=== PATIENT | female | born 1955 | race Caucasian/White ===

== ENCOUNTER → 2016-11-14 | Outpatient (CLI) | payer OTHER ==
[~2016-11-14] MED LIST: METO5TAB11 PO; OMEP40CA6 PO; OXYB5SYR2 PO; ranitidine
--- NOTE | 2016-11-14 16:55 | RADRPT ---
PROCEDURE: Nuclear medicine gastric emptying study CLINICAL INDICATION: Abdominal pain. Nausea. Rule out gastroparesis. TECHNIQUE: Nuclear medicine gastric emptying study was performed following the uncomplicated inges tion of 1.1 mCi of technetium 99m sulfur colloid. Planar imaging of the abdomen and stomach was per formed. Time activity curves were plotted on a graph. Images were reviewed on a high-resolution ID [employer] workstation. COMPARISON: None available FINDINGS: There is normal gastric emptying from the stomach. The T1/2 is approximately 242 minutes, markedly abnormal and elevated. The normal range is <90 minutes. There is inappropriate emptying from the s tomach to the small bowel. Findings are consistent with gastroparesis, or less likely gastric outle t obstruction. IMPRESSION: 1. Positive gastric emptying study. 2. Abnormal lack of passage of radiotracer from the stomach. 3. Findings are consistent with gastroparesis. RPTAT: PP .Rishabh Bernabe MD, MD Date Time Electronically viewed and signed by .Rishabh Bernabe MD, on 11/14/2016 16:55 .B/
== END | disposition home or self-care (01) ==
LOC: NUC 13:36
PROVIDERS: ATTEND Surgery Surgical Oncology
DX: K31.84 Gastroparesis (principal)
CPT/HCPCS: 78264; A9541

== ENCOUNTER 2017-01-08 05:21 | Inpatient (IN) | payer OTHER ==
[2017-01-05 11:41] VITALS: BMI 20.2
[2017-01-08] VITALS (14 sets, daily range): BP systolic 99–146; BP diastolic 45–78; PULSE 50–64; RESP 6–35; Ht 160 cm; Wt 50.3 kg
[~2017-01-08] VITALS: Ht 160 cm; Wt 50.3 kg
[~2017-01-08 05:21] MED LIST changes: -METO5TAB11 PO; +RANI150C11 PO; +SOD CHLORIDE 0.9% 1,000 ML IV SCH; -ranitidine
[2017-01-08] MEDS ORDERED: CEFAZOLIN 2 GM/50 ML (PMX) 50 ML IVPB SCH (06:00)
[2017-01-08] MEDS ORDERED: BUPIVACAINE 0.25% (MPF) 30 ML INJ ONE (06:48)
[2017-01-08] MEDS ORDERED: ROCURONIUM 50 MG INJ ONE (07:24)
[2017-01-08] MEDS ORDERED: LIDOCAINE 2% (SDV) 5 ML INJ ONE (07:24)
[2017-01-08] MEDS ORDERED: PROPOFOL 20 ML ONE (07:24)
[2017-01-08] MEDS ORDERED: BUPIVACAINE 0.25% (MPF) 30 ML INJ INJ ONE (07:35)
[2017-01-08] MEDS ORDERED: METOCLOPRAMIDE 10 MG INJ IV PRN (09:00)
[2017-01-08] MEDS ORDERED: FENTAnyl 50 MCG/ML VIAL IV PRN ×3 (09:00)
[2017-01-08] MEDS ORDERED: hydrALAzine 20 MG INJ IV PRN (09:00)
[2017-01-08] MEDS ORDERED: MEPERIDINE 25 MG INJ IV PRN (09:00)
[2017-01-08] MEDS ORDERED: DIPHENHYDRAMINE 50 MG INJ IV PRN (09:00)
[2017-01-08] MEDS ORDERED: ONDANSETRON 4 MG INJ IV PRN ×2 (09:00→22:00)
[2017-01-08] MEDS ORDERED: HYDROmorphONE (0.2 MG/ML) 10ML SYG IV PRN ×3 (09:00)
[2017-01-08] MEDS ORDERED: LABETALOL HCL 20MG INJ IV PRN (09:00)
[2017-01-08] MEDS ORDERED: EPHEDrine SULFATE 50 MG/5 ML SYG IV PRN (09:00)
[2017-01-08] MEDS ORDERED: AMPICILLIN/SULB 3 GM/NS (PMX) 100 ML IVPB SCH (10:00)
[2017-01-08 10:25] LABS: ADD SCAN DIFF NO
[2017-01-08 10:28] LABS: BASOPHIL # 0.1 10^3/ul (0.0-0.1); BASOPHILS % 0.5 % (0.0-2.0); EOSINOPHILS # 0.4 10^3/ul (0.0-0.5); EOSINOPHILS % 4.1 % (0.0-7.0); HEMOGLOBIN 13.2 g/dl (12.0-16.0); LYMPHOCYTES # 2.4 10^3/ul (0.8-2.9); LYMPHOCYTES % 25.5 % (15.0-51.0); MEAN CORPUSCULAR HEMOGLOBIN 32.8 pg (29.0-33.0); MEAN CORPUSCULAR HGB CONC 33.8 g/dl (32.0-37.0); MEAN PLATELET VOLUME 10.7 fl (7.4-10.4); MONOCYTE # 0.6 10^3/ul (0.3-0.9); MONOCYTES % 6.2 % (0.0-11.0); NEUTROPHILS % 63.4 % (39.0-77.0); PLATELET COUNT 293 10^3/UL (140-415); RED BLOOD COUNT 4.02 10^6/ul (4.20-5.40); RED CELL DISTRIBUTION WIDTH 12.6 % (11.5-14.5); WHITE BLOOD COUNT 9.5 10^3/ul (4.8-10.8)
[2017-01-08 10:37] LABS: ALBUMIN 3.6 g/dl (3.3-4.9)
[2017-01-08 10:40] LABS: ALBUMIN/GLOBULIN RATIO 1.28; BILIRUBIN,INDIRECT 0.1 mg/dl (0-1.1); BILIRUBIN,TOTAL 0.1 mg/dl (0.2-1.3); TOTAL PROTEIN 6.4 g/dl (6.1-8.1)
[2017-01-08 10:42] LABS: CALCIUM 8.4 mg/dl (8.4-10.2); CREATININE 0.87 mg/dl (0.44-1.00); POTASSIUM 3.6 mmol/L (3.5-5.1)
[2017-01-08] MEDS: LACTATED RINGER'S 1,000 ML IV SCH ×2 (11:39→19:44)
[2017-01-08] MEDS: morphine 2 MG INJ IV PRN ×3 (11:48→21:13)
--- NOTE | 2017-01-08 12:18 | OPR ---
DATE OF OPERATION: 01/08/2017 INDICATION: This is a 61-year-old female with examination and evaluation of gastroparesis with evid ence of a gastric outlet obstruction. She has persistent nausea and vomiting and requests a gastroi ntestinal bypass. Risks, alternatives, benefits, and personnel were discussed with the patient. Ajith westbrook expressed understanding and consented to the operation. PREOPERATIVE DIAGNOSIS: Gastroparesis and gastric outlet obstruction. POSTOPERATIVE DIAGNOSIS: Gastroparesis and gastric outlet obstruction. OPERATION: Laparoscopic gastrointestinal bypass with Billroth II configuration. SURGEON: Amanda Heath MD SPECIMENS: None. COMPLICATIONS: None. ANESTHESIA: General. DESCRIPTION OF PROCEDURE: The patient was taken to the OR and prepped and draped in the usual steri le fashion. Surgical timeout was performed and IV antibiotics were given. Periumbilical left upper 12 mm optical trocar was placed with optical entry technique. Pneumoperitoneum was established. M idepigastric 5 mm optical trocar, left midclavicular subcostal 12 mm optical trocar, right subcostal midclavicular 12 mm optical trocar and left upper flank 5 mm optical trocar were placed under direc t visualization. A snake liver retractor was placed to retract the liver out of visualization. Upo n initial inspection, there appeared to be a distended stomach which was enlarged. This was suction ed out with OG tube. Attention was then directed to the short gastrics. The short gastrics were di vided with handheld Harmonic. The lesser space was then evaluated. It appeared that a retrogastric Billroth II anastomosis would be beneficial for the patient. The jejunum was identified from the l igament of Treitz and marched out approximately 45 cm from the ligament of Treitz. A stay suture wa s placed with 3-0 silk to the retrogastric region. Another stay suture was placed approximately 20 cm distal in a peristaltic configuration towards the pylorus of the stomach. Gastrotomy and enterotomy were made with the handheld Harmonic. Three fires of the [address] [place] stapl er were placed to perform the gastrojejunal anastomosis. The remaining gastrotomy/enterotomy was cl osed with a running 3-0 PDS. This gastrotomy/enterotomy was then closed with another layer of inter rupted 3-0 silks. There was good hemostasis. Ports were removed under direct visualization. Skin was closed using skin gonzalo. Local anesthesia was injected. Dry dressings were applied. Dictated By: AMANDA NGUYEN/CELIO Conf#: [id number] DID#: [id number]
[2017-01-08] MEDS: AMPICILLIN/SULB 3 GM/NS (PMX) 100 ML IVPB SCH ×3 (13:55→23:19)
--- NOTE | 2017-01-08 20:14 | HP ---
DATE OF ADMISSION: 01/08/2017 HISTORY OF PRESENT ILLNESS: The patient is 61-year-old female. The patient with history of GERD, B arrett esophagus, hiatal hernia. The patient was diagnosed with gastroparesis and duodenal strictur e with multiple visits to the emergency room for nausea and vomiting. The patient was evaluated in surgical consultation with Dr. Heath, and patient was brought to the hospital and underwent laparoscop ic gastrointestinal bypass with Billroth II configuration for gastroparesis with evidence of gastric outlet obstruction. Postoperatively, the patient experienced significant pain, and patient was adm itted for further evaluation and management. PAST MEDICAL HISTORY: Positive for GERD, gastric ulcer, hiatal hernia, Arguelles esophagus. The ella ent was followed by Dr. Ovalle in gastroenterology consultation and underwent EGD. 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 The patient also with a history of complete uterine prolap se. PAST SURGICAL HISTORY: The patient denies having any surgeries in the past. SOCIAL HISTORY: The patient denies any tobacco use in the past, denies any illicit drug use. The p atient drinks alcohol occasionally. FAMILY HISTORY: Positive for ovarian cancer and breast cancer in first-degree relative. ALLERGIES: THE PATIENT IS ALLERGIC TO CODEINE. HOME MEDICATIONS: Include: 1. Ranitidine. 2. Omeprazole. 3. Oxybutynin chloride. REVIEW OF SYSTEMS: A 12-point review of systems is negative unless what mentioned in HPI. PHYSICAL ASSESSMENT: GENERAL: Well-developed, well-nourished female, currently is awake, alert. VITAL SIGNS: Temperature 98.9, pulse is 63, blood pressure is 135/78, respiratory rate 18, oxygen s aturation is 100% on 2 L nasal cannula. HEENT: Head is atraumatic, normocephalic. Pupils equal, round, reactive to light and accommodation . Oral mucosa is pink, moist. NECK: Supple. No cervical lymphadenopathy, no thyromegaly. CHEST: Lungs clear bilaterally. There are no rhonchi, wheezes, rales noted. CARDIOVASCULAR: Normal S1, S2. No murmurs, gallops, clicks, rubs noted. ABDOMEN: Status post surgery with laparoscopic surgical incisions. Bowel sounds hypoactive. EXTREMITIES: There is no edema, clubbing, cyanosis. Pulses equal bilaterally 2+. SKIN: There is no rash, petechiae noted. NEUROLOGIC: The patient is awake, alert and oriented x4. No focal deficit noted. The patient move s all extremities. Stable gait. LABORATORY DATA ON ADMISSION: CBC: White blood cells 9.5, hemoglobin 13.2, hematocrit 39.0, platel ets 293. Chemistry: Sodium is 141, potassium 3.6, chloride 104, carbon dioxide 27, anion gap 14, B UN is 15, creatinine 0.87, glucose 141, calcium 8.4, AST 37, ALT 38, alkaline phosphatase is 78. ASSESSMENT AND PLAN: 1. Gastroparesis and gastric outlet obstruction, status post laparoscopic gastrointestinal bypass b y Dr. Heath on 01/08/2017. Continue to follow up surgical recommendations. The patient is currently n.p.o. Continue IV fluids. The patient is also receiving postoperative antibiotics and continue Pr otonix. 2. Gastroesophageal reflux disease. 3. Uterine prolapse. We are going to continue morphine p.r.n. for pain and Zofran p.r.n. for nause a. Monitor electrolytes. Incentive spirometer q.1 hour while the patient is awake. 4. Sequential compression devices for deep venous thrombosis prophylaxis. Further recommendations based on clinical course. Plan of care discussed with Dr. Yee. Dictated By: CYNTHIA MANZO ACCOUNT ASSISTANT for PRISCILA YEE MD SR/NTS Conf#: [id number] DID#: [id number]
[2017-01-09] MEDS: LACTATED RINGER'S 1,000 ML IV SCH ×3 (01:03→18:05)
[2017-01-09] MEDS: AMPICILLIN/SULB 3 GM/NS (PMX) 100 ML IVPB SCH (05:12)
[2017-01-09] MEDS: PANTOPRAZOLE 40 MG INJ IV SCH (05:13)
[2017-01-09 07:23] VITALS: BP 126/57; RESP 20
[2017-01-09] MEDS ORDERED: HYDROCODONE/APAP (5/325) TAB PO PRN (11:00)
[2017-01-09 11:28] LABS: ADD SCAN DIFF NO
[2017-01-09 11:33] LABS: BASOPHILS % 0.1 % (0.0-2.0); HEMOGLOBIN 12.9 g/dl (12.0-16.0); LYMPHOCYTES % 7.5 % (15.0-51.0); MEAN CORPUSCULAR HEMOGLOBIN 32.3 pg (29.0-33.0); MEAN CORPUSCULAR HGB CONC 33.1 g/dl (32.0-37.0); MEAN CORPUSCULAR VOLUME 97.7 fl (82.0-101.0); MEAN PLATELET VOLUME 10.9 fl (7.4-10.4); MONOCYTE # 0.9 10^3/ul (0.3-0.9); MONOCYTES % 6.7 % (0.0-11.0); NEUTROPHIL # 11.7 10^3/ul (1.6-7.5); NEUTROPHILS % 85.2 % (39.0-77.0); PLATELET COUNT 294 10^3/UL (140-415); RED BLOOD COUNT 3.99 10^6/ul (4.20-5.40); RED CELL DISTRIBUTION WIDTH 13.2 % (11.5-14.5); WHITE BLOOD COUNT 13.8 10^3/ul (4.8-10.8)
[2017-01-09 11:55] LABS: ALBUMIN 3.6 g/dl (3.3-4.9); ALBUMIN/GLOBULIN RATIO 1.24; BILIRUBIN,INDIRECT 0.1 mg/dl (0-1.1); BILIRUBIN,TOTAL 0.1 mg/dl (0.2-1.3); CALCIUM 8.9 mg/dl (8.4-10.2); CREATININE 0.65 mg/dl (0.44-1.00); POTASSIUM 3.7 mmol/L (3.5-5.1); TOTAL PROTEIN 6.5 g/dl (6.1-8.1)
[2017-01-09] MEDS: ASA/ACETAMINOPHEN/CAFF TAB PO PRN ×2 (11:55→18:16)
--- NOTE | 2017-01-09 17:57 | PN ---
Date/Time of Note Date/Time of Note DATE: 01/09/17 TIME: 17:53 Assessment/Plan VTE Prophylaxis VTE Prophylaxis Intervention: SCD's Lines/Catheters IV Catheter Type (from Nrs): Peripheral IV Urinary Cath still in place: No Assessment/Plan Chief Complaint/Hosp Course ASSESSMENT AND PLAN: 1. Gastroparesis and gastric outlet obstruction, status post laparoscopic gastrointestinal bypass by Dr. Heath on 01/08/2017. Advance diet per surgery. Continue to follow up surgical recommendations. Continue morphine p.r.n. for pain and Zofran p.r.n. for nausea. Monitor electrolytes. Incentive spirometer q.1 hour while the patient is awake. 2. Gastroesophageal reflux disease. Continue Protonix. 3. Uterine prolapse. Sequential compression devices for deep venous thrombosis prophylaxis. Further recommendations based on clinical course. Plan of care discussed with Dr. Dooley. Problems: Subjective 24 Hr Interval Summary Free Text/Dictation Patient tolerates clear liquid well, pain is well controlled. Exam/Review of Systems Vital Signs Vitals Vital Signs Date Time Temp Pulse Resp B/P Pulse Ox O2 Delivery O2 Flow Rate FiO2 01/09/17 07:23 98.4 88 20 126/57 95 01/08/17 13:58 Nasal Cannula 2.0 Intake and Output 01/08/17 01/08/17 01/09/17 15:00 23:00 07:00 Intake Total 1200 ml 100 ml 1650 ml Output Total 0 ml Balance 1200 ml 100 ml 1650 ml Exam GENERAL: Well-developed, well-nourished female, currently is awake, alert. HEENT: Head is atraumatic, normocephalic. PERRLA. NECK: Supple. No cervical lymphadenopathy, no thyromegaly. CHEST: Lungs clear bilaterally. There are no rhonchi, wheezes, rales noted. CARDIOVASCULAR: Normal S1, S2. No murmurs, gallops, clicks, rubs noted. ABDOMEN: Status post surgery with laparoscopic surgical incisions. Bowel sounds hypoactive. EXTREMITIES: There is no edema, clubbing, cyanosis. Pulses equal bilaterally 2 +. SKIN: There is no rash, petechiae noted. NEUROLOGIC: The patient is awake, alert and oriented x4. Results Result Diagram: 01/09/17 1115 01/09/17 1115 Results 24 hrs Laboratory Tests Test 01/09/17 11:15 White Blood Count 13.8 #H Red Blood Count 3.99 L Hemoglobin 12.9 Hematocrit 39.0 Mean Corpuscular Volume 97.7 Mean Corpuscular Hemoglobin 32.3 Mean Corpuscular Hemoglobin Concent 33.1 Red Cell Distribution Width 13.2 Platelet Count 294 Mean Platelet Volume 10.9 H Neutrophils % 85.2 H Lymphocytes % 7.5 L Monocytes % 6.7 Eosinophils % 0.0 Basophils % 0.1 Nucleated Red Blood Cells % 0.0 Neutrophils # 11.7 H Lymphocytes # 1.0 Monocytes # 0.9 Eosinophils # 0.0 Basophils # 0.0 Nucleated Red Blood Cells # 0.0 Sodium Level 137 Potassium Level 3.7 Chloride Level 105 Carbon Dioxide Level 26 Anion Gap 10 Blood Urea Nitrogen 11 Creatinine 0.65 Glucose Level 146 Calcium Level 8.9 Total Bilirubin 0.1 L Direct Bilirubin 0.00 Indirect Bilirubin 0.1 Aspartate Amino Transf (AST/SGOT) 26 Alanine Aminotransferase (ALT/SGPT) 27 Alkaline Phosphatase 71 Total Protein 6.5 Albumin 3.6 Globulin 2.90 Albumin/Globulin Ratio 1.24 Medications Medications Current Medications Morphine Sulfate 2 mg 2 mg Q2H PRN IV PAIN LEVEL 6-10 Last administered on 21:13; Admin Dose 2 MG; Start 01/08/17 at 10:00 Lactated Ringer's (Lr) 1,000 ml @ 100 mls/hr Q10H IV Last administered on 01:03; Admin Dose 100 MLS/HR; Start 01/08/17 at 09:50 Pantoprazole (Protonix Iv) 40 mg DAILY@06 IV Last administered on 01/09/17 05: 13; Admin Dose 40 MG; Start 01/09/17 at 06:00 Ondansetron HCl (Zofran Inj) 4 mg Q6H PRN IV NAUSEA AND/OR VOMITING Last administered on 01/08/17 21:42; Admin Dose 4 MG; Start 01/08/17 at 22:00 Acetaminophen/ Hydrocodone Bitart ([place] (5/325)) 1 tab Q6H PRN PO PAIN; Start 01/09/17 at 11:00; Status UNV Acetaminophen/ Aspirin/Caffeine (Excedrin) 1 tab Q6 PRN PO PAIN Last administered on 01/09/17 11:55; Admin Dose 1 TAB; Start 01/09/17 at 12:00 CYNTHIA MANZO January 09, 2017 17:57
--- NOTE | 2017-01-09 18:25 | PN ---
Date/Time of Note Date/Time of Note DATE: 01/09/17 TIME: 18:24 Assessment/Plan VTE Prophylaxis VTE Prophylaxis Intervention: SCD's Lines/Catheters IV Catheter Type (from Nrs): Peripheral IV Urinary Cath still in place: No Assessment/Plan Chief Complaint/Hosp Course s/p lap gastrointestinal bypass Problems: Assessment/Plan clears today fulls tomorrow Subjective 24 Hr Interval Summary Free Text/Dictation doing well no issues Exam/Review of Systems Vital Signs Vitals Vital Signs Date Time Temp Pulse Resp B/P Pulse Ox O2 Delivery O2 Flow Rate FiO2 01/09/17 07:23 98.4 88 20 126/57 95 01/08/17 13:58 Nasal Cannula 2.0 Intake and Output 01/08/17 01/08/17 01/09/17 15:00 23:00 07:00 Intake Total 1200 ml 100 ml 1650 ml Output Total 0 ml Balance 1200 ml 100 ml 1650 ml Exam c/d/i Results Result Diagram: 01/09/17 1115 01/09/17 1115 Results 24 hrs Laboratory Tests Test 01/09/17 11:15 White Blood Count 13.8 #H Red Blood Count 3.99 L Hemoglobin 12.9 Hematocrit 39.0 Mean Corpuscular Volume 97.7 Mean Corpuscular Hemoglobin 32.3 Mean Corpuscular Hemoglobin Concent 33.1 Red Cell Distribution Width 13.2 Platelet Count 294 Mean Platelet Volume 10.9 H Neutrophils % 85.2 H Lymphocytes % 7.5 L Monocytes % 6.7 Eosinophils % 0.0 Basophils % 0.1 Nucleated Red Blood Cells % 0.0 Neutrophils # 11.7 H Lymphocytes # 1.0 Monocytes # 0.9 Eosinophils # 0.0 Basophils # 0.0 Nucleated Red Blood Cells # 0.0 Sodium Level 137 Potassium Level 3.7 Chloride Level 105 Carbon Dioxide Level 26 Anion Gap 10 Blood Urea Nitrogen 11 Creatinine 0.65 Glucose Level 146 Calcium Level 8.9 Total Bilirubin 0.1 L Direct Bilirubin 0.00 Indirect Bilirubin 0.1 Aspartate Amino Transf (AST/SGOT) 26 Alanine Aminotransferase (ALT/SGPT) 27 Alkaline Phosphatase 71 Total Protein 6.5 Albumin 3.6 Globulin 2.90 Albumin/Globulin Ratio 1.24 Medications Medications Current Medications Morphine Sulfate 2 mg 2 mg Q2H PRN IV PAIN LEVEL 6-10 Last administered on t 21:13; Admin Dose 2 MG; Start 5/1/17 at 10:00 Lactated Ringer's (Lr) 1,000 ml @ 100 mls/hr Q10H IV Last administered on 18:05; Admin Dose 100 MLS/HR; Start 01/08/17 at 09:50 Pantoprazole (Protonix Iv) 40 mg DAILY@06 IV Last administered on 01/09/17 05: 13; Admin Dose 40 MG; Start 01/09/17 at 06:00 Ondansetron HCl (Zofran Inj) 4 mg Q6H PRN IV NAUSEA AND/OR VOMITING Last administered on 01/08/17 21:42; Admin Dose 4 MG; Start 01/08/17 at 22:00 Acetaminophen/ Hydrocodone Bitart ([place] (5/325)) 1 tab Q6H PRN PO PAIN; Start 01/09/17 at 11:00; Status UNV Acetaminophen/ Aspirin/Caffeine (Excedrin) 1 tab Q6 PRN PO PAIN Last administered on 01/09/17 18:16; Admin Dose 1 TAB; Start 01/09/17 at 12:00 Miscellaneous Information 5 mg TID PO ; Start 01/09/17 at 21:00; Status UNV Santa LANG January 09, 2017 18:25
[2017-01-09] MEDS: morphine 2 MG INJ IV PRN (20:02)
[2017-01-09 20:53] VITALS: BP 128/59; RESP 19
[2017-01-09] MEDS ORDERED: NON-FORMULARY/PATIENT OWN MED (Oxybutynin Chloride* 5 MG) PO SCH (21:00)
[2017-01-10] MEDS: LACTATED RINGER'S 1,000 ML IV SCH ×2 (01:50→03:21)
[2017-01-10] MEDS: ASA/ACETAMINOPHEN/CAFF TAB PO PRN ×3 (03:23→17:57)
[2017-01-10] MEDS: PANTOPRAZOLE 40 MG INJ IV SCH (05:09)
[2017-01-10 07:20] VITALS: BP 108/57; RESP 18
[2017-01-10] MEDS: OXYBUTYNIN 5 MG TAB PO SCH ×3 (10:03→21:29)
[2017-01-10 10:33] LABS: ADD SCAN DIFF NO
[2017-01-10 10:40] LABS: BASOPHILS % 0.3 % (0.0-2.0); EOSINOPHILS # 0.1 10^3/ul (0.0-0.5); EOSINOPHILS % 0.8 % (0.0-7.0); HEMATOCRIT 32.1 % (37.0-47.0); HEMOGLOBIN 10.6 g/dl (12.0-16.0); LYMPHOCYTES # 0.9 10^3/ul (0.8-2.9); LYMPHOCYTES % 7.9 % (15.0-51.0); MEAN CORPUSCULAR HEMOGLOBIN 31.8 pg (29.0-33.0); MEAN CORPUSCULAR VOLUME 96.4 fl (82.0-101.0); MEAN PLATELET VOLUME 11.1 fl (7.4-10.4); MONOCYTE # 0.7 10^3/ul (0.3-0.9); NEUTROPHIL # 9.3 10^3/ul (1.6-7.5); NEUTROPHILS % 84.5 % (39.0-77.0); PLATELET COUNT 241 10^3/UL (140-415); RED BLOOD COUNT 3.33 10^6/ul (4.20-5.40); RED CELL DISTRIBUTION WIDTH 12.9 % (11.5-14.5); WHITE BLOOD COUNT 10.9 10^3/ul (4.8-10.8)
[2017-01-10 10:54] LABS: CREATININE 0.57 mg/dl (0.44-1.00)
[2017-01-10 10:55] LABS: CALCIUM 8.1 mg/dl (8.4-10.2)
[2017-01-10 11:39] LABS: POTASSIUM 2.9 mmol/L (3.5-5.1)
[2017-01-10] MEDS ORDERED: POTASSIUM CHLORIDE (SR) 20 MEQ TAB PO STA (12:42)
--- NOTE | 2017-01-10 13:44 | PN ---
Date/Time of Note Date/Time of Note DATE: 01/10/17 TIME: 13:44 Assessment/Plan VTE Prophylaxis VTE Prophylaxis Intervention: SCD's Lines/Catheters IV Catheter Type (from Nrs): Peripheral IV Urinary Cath still in place: No Assessment/Plan Chief Complaint/Hosp Course s/p lap gastrointestinal bypass Problems: Assessment/Plan tolerating liquids, will start gi soft cautiously Subjective 24 Hr Interval Summary Free Text/Dictation doing well tolerating liquid diet Exam/Review of Systems Vital Signs Vitals Vital Signs Date Time Temp Pulse Resp B/P Pulse Ox O2 Delivery O2 Flow Rate FiO2 01/10/17 07:20 98.6 76 18 108/57 96 01/08/17 13:58 Nasal Cannula 2.0 Intake and Output 01/09/17 01/09/17 01/10/17 15:00 23:00 07:00 Intake Total 1870 ml 1760 ml Balance 1870 ml 1760 ml Exam c/d/i Results Result Diagram: 01/10/17 0955 01/10/17 0955 Results 24 hrs Laboratory Tests Test 01/10/17 09:55 White Blood Count 10.9 #H Red Blood Count 3.33 L Hemoglobin 10.6 L Hematocrit 32.1 L Mean Corpuscular Volume 96.4 Mean Corpuscular Hemoglobin 31.8 Mean Corpuscular Hemoglobin Concent 33.0 Red Cell Distribution Width 12.9 Platelet Count 241 Mean Platelet Volume 11.1 H Neutrophils % 84.5 H Lymphocytes % 7.9 L Monocytes % 6.0 Eosinophils % 0.8 Basophils % 0.3 Nucleated Red Blood Cells % 0.0 Neutrophils # 9.3 H Lymphocytes # 0.9 Monocytes # 0.7 Eosinophils # 0.1 Basophils # 0.0 Nucleated Red Blood Cells # 0.0 Sodium Level 133 L Potassium Level 2.9 *L Chloride Level 98 Carbon Dioxide Level 26 Anion Gap 12 Blood Urea Nitrogen 7 Creatinine 0.57 Glucose Level 117 Calcium Level 8.1 L Medications Medications Current Medications Morphine Sulfate (morphine) 2 mg Q2H PRN IV PAIN LEVEL 6-10 Last administered on 01/09/17 20:02; Admin Dose 2 MG; Start 01/08/17 at 10:00 Pantoprazole (Protonix Iv) 40 mg DAILY@06 IV Last administered on 01/10/17 05: 09; Admin Dose 40 MG; Start 01/09/17 at 06:00 Ondansetron HCl (Zofran Inj) 4 mg Q6H PRN IV NAUSEA AND/OR VOMITING Last administered on 01/08/17 21:42; Admin Dose 4 MG; Start 01/08/17 at 22:00 Acetaminophen/ Aspirin/Caffeine (Excedrin) 1 tab Q6 PRN PO PAIN Last administered on 01/10/17 10:06; Admin Dose 1 TAB; Start 01/09/17 at 12:00 Oxybutynin Chloride 5 mg 5 mg TID PO Last administered on 01/10/17 12:35; Admin Dose 5 MG; Start 01/10/17 at 10:00 Potassium Chloride (KCl 40 MEQ/250 ML NS) 250 ml @ 62.5 mls/hr ONCE ONCE IVPB ; Start 01/10/17 at 14:30; Stop 01/10/17 at 18:29 Santa LANG January 10, 2017 13:44
[2017-01-10] MEDS ORDERED: POTASSIUM CHLORIDE 250 ML IVPB ONE (14:30)
--- NOTE | 2017-01-10 18:17 | PN ---
Date/Time of Note Date/Time of Note DATE: 01/10/17 TIME: 18:15 Assessment/Plan VTE Prophylaxis VTE Prophylaxis Intervention: SCD's Lines/Catheters IV Catheter Type (from Nrsg): Peripheral IV Central line still needed: Yes Urinary Cath still in place: No Assessment/Plan Chief Complaint/Hosp Course ASSESSMENT AND PLAN: 1. Gastroparesis and gastric outlet obstruction, status post laparoscopic gastrointestinal bypass by Dr. Heath on 01/08/2017. Advance diet per surgery. Continue to follow up surgical recommendations. Continue morphine p.r.n. for pain and Zofran p.r.n. for nausea. Monitor electrolytes. Incentive spirometer q.1 hour while the patient is awake. 2. Gastroesophageal reflux disease. Continue Protonix. 3. Uterine prolapse. Sequential compression devices for deep venous thrombosis prophylaxis. Further recommendations based on clinical course. Plan of care discussed with Dr. Dooley. Problems: Subjective 24 Hr Interval Summary Free Text/Dictation Patient started on mechanical soft diet, pain is well controlled, denies nausea vomiting. Exam/Review of Systems Vital Signs Vitals Vital Signs Date Time Temp Pulse Resp B/P Pulse Ox O2 Delivery O2 Flow Rate FiO2 01/10/17 07:20 98.6 76 18 108/57 96 01/08/17 13:58 Nasal Cannula 2.0 Intake and Output 01/09/17 01/09/17 01/10/17 15:00 23:00 07:00 Intake Total 1870 ml 1760 ml Balance 1870 ml 1760 ml Exam GENERAL: Well-developed, well-nourished female, currently is awake, alert. HEENT: Head is atraumatic, normocephalic. PERRLA. NECK: Supple. No cervical lymphadenopathy, no thyromegaly. CHEST: Lungs clear bilaterally. There are no rhonchi, wheezes, rales noted. CARDIOVASCULAR: Normal S1, S2. No murmurs, gallops, clicks, rubs noted. ABDOMEN: Status post surgery with laparoscopic surgical incisions. Bowel sounds hypoactive. EXTREMITIES: There is no edema, clubbing, cyanosis. Pulses equal bilaterally 2 +. SKIN: There is no rash, petechiae noted. NEUROLOGIC: The patient is awake, alert and oriented x4. Results Result Diagram: 01/10/17 0901/10/17 0955 Results 24 hrs Laboratory Tests Test 01/10/17 09:55 White Blood Count 10.9 #H Red Blood Count 3.33 L Hemoglobin 10.6 L Hematocrit 32.1 L Mean Corpuscular Volume 96.4 Mean Corpuscular Hemoglobin 31.8 Mean Corpuscular Hemoglobin Concent 33.0 Red Cell Distribution Width 12.9 Platelet Count 241 Mean Platelet Volume 11.1 H Neutrophils % 84.5 H Lymphocytes % 7.9 L Monocytes % 6.0 Eosinophils % 0.8 Basophils % 0.3 Nucleated Red Blood Cells % 0.0 Neutrophils # 9.3 H Lymphocytes # 0.9 Monocytes # 0.7 Eosinophils # 0.1 Basophils # 0.0 Nucleated Red Blood Cells # 0.0 Sodium Level 133 L Potassium Level 2.9 *L Chloride Level 98 Carbon Dioxide Level 26 Anion Gap 12 Blood Urea Nitrogen 7 Creatinine 0.57 Glucose Level 117 Calcium Level 8.1 L Medications Medications Current Medications Morphine Sulfate (morphine) 2 mg Q2H PRN IV PAIN LEVEL 6-10 Last administered on 01/09/17 20:02; Admin Dose 2 MG; Start 01/08/17 at 10:00 Pantoprazole (Protonix Iv) 40 mg DAILY@06 IV Last administered on 01/10/17 05: 09; Admin Dose 40 MG; Start 01/09/17 at 06:00 Ondansetron HCl (Zofran Inj) 4 mg Q6H PRN IV NAUSEA AND/OR VOMITING Last administered on 01/08/17 21:42; Admin Dose 4 MG; Start 01/08/17 at 22:00 Acetaminophen/ Aspirin/Caffeine (Excedrin) 1 tab Q6 PRN PO PAIN Last administered on 01/10/17 17:57; Admin Dose 1 TAB; Start 01/09/17 at 12:00 Oxybutynin Chloride 5 mg 5 mg TID PO Last administered on 01/10/17 12:35; Admin Dose 5 MG; Start 01/10/17 at 10:00 Potassium Chloride (KCl 40 MEQ/250 ML NS) 250 ml @ 62.5 mls/hr ONCE ONCE IVPB Last administered on 01/10/17 14:10; Admin Dose 62.5 MLS/HR; Start 01/10/17 at 14:30; Stop 01/10/17 at 18:29 CYNTHIA MANZO January 10, 2017 18:17
[2017-01-10 21:07] VITALS: BP 123/63; RESP 18
[2017-01-11] MEDS: PANTOPRAZOLE 40 MG INJ IV SCH (05:24)
[2017-01-11 08:04] VITALS: BP 118/65; PULSE 81; RESP 16
[2017-01-11] MEDS: ASA/ACETAMINOPHEN/CAFF TAB PO PRN ×2 (08:52→17:05)
[2017-01-11] MEDS: OXYBUTYNIN 5 MG TAB PO SCH ×2 (08:52→12:07)
--- NOTE | 2017-01-11 11:07 | PN ---
Date/Time of Note Date/Time of Note DATE: 01/11/17 TIME: 11:07 Assessment/Plan VTE Prophylaxis VTE Prophylaxis Intervention: SCD's Lines/Catheters IV [facility] [place] Urinary Cath still in place: No Assessment/Plan Chief Complaint/Hosp Course s/p lap gastrointestinal bypass Problems: Assessment/Plan tolerating diet dc home today PPI daily for 3 months f/u in 2 weeks Subjective 24 Hr Interval Summary Free Text/Dictation doing well, no issues, tolerating diet, no further nausea or vomiting Exam/Review of Systems Vital Signs Vitals Vital Signs Date Time Temp Pulse Resp B/P Pulse Ox O2 Delivery O2 Flow Rate FiO2 01/11/17 08:04 98.4 81 16 118/65 94 01/08/17 13:58 Nasal Cannula 2.0 Intake and Output 01/10/17 01/10/17 01/11/17 15:00 23:00 07:00 Intake Total 960 ml 850 ml Balance 960 ml 850 ml Exam c/d/i Results Result Diagram: 01/10/17 0955 01/10/17 0955 Medications Medications Current Medications Morphine Sulfate (morphine) 2 mg Q2H PRN IV PAIN LEVEL 6-10 Last administered on 01/09/17 20:02; Admin Dose 2 MG; Start 01/08/17 at 10:00 Pantoprazole (Protonix Iv) 40 mg DAILY@06 IV Last administered on 01/11/17 05: 24; Admin Dose 40 MG; Start 01/09/17 at 06:00 Ondansetron HCl (Zofran Inj) 4 mg Q6H PRN IV NAUSEA AND/OR VOMITING Last administered on 01/08/17 21:42; Admin Dose 4 MG; Start 01/08/17 at 22:00 Acetaminophen/ Aspirin/Caffeine (Excedrin) 1 tab Q6 PRN PO PAIN Last administered on 01/11/17 08:52; Admin Dose 1 TAB; Start 01/09/17 at 12:00 Oxybutynin Chloride (Ditropan) 5 mg TID PO Last administered on 01/11/17 08:52 ; Admin Dose 5 MG; Start 01/10/17 at 10:00 Santa ALNG January 11, 2017 11:07
[2017-01-11] MEDS ORDERED: OXYB5SYR2 PO (17:31)
[2017-01-11] MEDS ORDERED: OMEP40CA6 PO (17:31)
[2017-01-12] MEDS ORDERED: PANTOPRAZOLE (EC) 40 MG TAB PO SCH (06:00)
--- NOTE | 2017-01-15 05:49 | DS ---
DATE OF ADMISSION: 01/08/2017 DATE OF DISCHARGE: 01/11/2017 FINAL DIAGNOSES: 1. Gastroparesis and gastric outlet obstruction status post laparoscopic gastrointestinal bypass. 2. Gastroesophageal reflux disease. 3. Uterine prolapse. BRIEF HISTORY: The patient is a 61-year-old female with history of GERD, Arguelles esophagus, and hia rosario hernia. The patient was diagnosed with gastroparesis and duodenal stricture with multiple visit s to the emergency room for nausea and vomiting. The patient was evaluated by Dr. Heath in surgical c onsultation. The patient was brought to the hospital and underwent laparoscopic gastrointestinal by pass with Billroth II configuration for gastroparesis with evidence of gastric outlet obstruction. Postoperatively, the patient experienced significant pain and mild nausea, and the patient was admit bonilla for further evaluation and management. HOSPITAL COURSE: The patient was given postoperative antibiotics and Protonix. The patient was giv en IV fluids. The patient was also given Zofran for nausea and morphine for pain. The patient was started on clear liquids which were gradually increased to mechanical soft diet. The patient tolera bonilla it well. The patient's condition improved. The patient's pain was well controlled. The patien t was discharged home. CONDITION ON DISCHARGE: Hemodynamically unstable. ACTIVITIES: As the patient tolerates. There is no lifting more than 25 pounds for 6 weeks. DISCHARGE MEDICATIONS: THE PATIENT IS ALLERGY TO CODEINE. The patient did not want any prescriptio n for [place]. She was taking Excedrin for pain for the last couple of days prior to discharge, and t he patient stated that she had Excedrin medication at home. The patient was given prescription for Protonix. FOLLOWUP: The patient is instructed to follow up with Dr. Heath in postoperative appointment in 1 to 2 weeks. Interdisciplinary plan of care was established for this patient. Plan of care was discussed with Dr Jamel Yee. Dictated By: CYNTHIA MANZO TOW DRIVER for PRISCILA YEE MD SR/NTS Conf#: [id number] DID#: [id number]
== END 2017-01-11 19:41 | disposition home or self-care (01) | DRG 327 ==
LOC: SDS 05:21 → EDSTATUS 07:30 → SDS 09:51 → PP2 09:51 → OBSVTOIN 17:57
PROVIDERS: ADMIT Internal Medicine; ATTEND Surgery
PROC: 0D164ZA Bypass Stomach to Jejunum, Percutaneous Endoscopic Approach (ICD-10-PCS; 2017-01-08)
PROC: 0DB64ZZ Excision of Stomach, Percutaneous Endoscopic Approach (ICD-10-PCS; principal; 2017-01-08 07:30)
DX: K31.1 Adult hypertrophic pyloric stenosis (principal); K31.5 Obstruction of duodenum; K31.84 Gastroparesis; K22.70 Barrett's esophagus without dysplasia; K21.9 Gastro-esophageal reflux disease without esophagitis; K44.9 Diaphragmatic hernia without obstruction or gangrene; N81.4 Uterovaginal prolapse, unspecified; Z79.4 Long term (current) use of insulin
CPT/HCPCS: 80048; 80053; 85025; G0378; C9113; J0295; J0690; J1170; J2175; J2270; J2405; J2765; J3010; J3480; J7030; J7120